=== PATIENT | male | born 1980 | race African-American/Black ===

== ENCOUNTER 2018-07-16 21:03 | Emergency (ER) | payer OTHER ==
[~2018-07-16] VITALS: Ht 175.3 cm; Wt 75.8 kg
[2018-07-16] MEDS ORDERED: FLONASE 0.05%50 MCG NASAL (21:29)
[2018-07-16] MEDS ORDERED: SINGULAIR 10 MG10 M1 PO (21:29)
[2018-07-16] MEDS ORDERED: NEXIUM40 MG PO (21:29)
[2018-07-16] MEDS ORDERED: TRAZODONE HCL100 MG PO (21:30)
[2018-07-16] MEDS ORDERED: QUETIAPINE FUM100 MG PO (21:30)
[2018-07-16] MEDS ORDERED: COLACE100 MG PO (21:31)
[2018-07-16] MEDS ORDERED: VALTREX 500 MG500 M1 PO (21:31)
[2018-07-16] MEDS ORDERED: VITAMINC500 PO (21:31)
[2018-07-16] MEDS ORDERED: SEROQUEL 50 MG50 MG PO (21:32)
[2018-07-16] MEDS ORDERED: CLEOCIN HCL150 MG PO (23:23)
[2018-07-16 23:34] VITALS: BP 103/68
== END 2018-07-16 23:35 | disposition home or self-care (01) ==
LOC: M.ERS 21:03
DX: K12.0 Recurrent oral aphthae (principal); F20.9 Schizophrenia, unspecified; Z88.8 Allergy status to other drugs, medicaments and biological substances